=== PATIENT | male | born 1955 | race Caucasian/White ===

== ENCOUNTER → 2016-06-16 | Outpatient (CLI) | payer MEDICARE, MEDICAID ==
[2016-06-16 12:36] LABS: Basophils # (auto) 0 uL; Basophils % (auto) 0.3 % (0.0-2.0); Eosinophils # (auto) 0.2 uL; Eosinophils % (auto) 2.5 % (0.0-7.0); Hematocrit 42.3 % (41.0-53.0); Hemoglobin 14.1 g/dL (13.5-17.5); Lymphocytes # (auto) 1.4 uL; Lymphocytes % (auto) 22.2 % (10.0-50.0); Mean Corpuscular Hemoglobin 30.2 pg (28.0-32.0); Mean Corpuscular Hgb Conc. 33.5 g/dL (32.0-36.0); Mean Corpuscular Volume 90.3 fL (80.0-100.0); Mean Platelet Volume 8.7 fL (7.4-10.4); Monocytes # (auto) 0.6 uL; Monocytes % (auto) 9.9 % (0.0-12.0); Neutrophils # (auto) 4.1 uL; Neutrophils % (auto) 65.1 % (37.0-80.0); Platelet Count (auto) 227 10^3/uL (140-450); Red Cell Distribution Width 15.4 % (11.6-16.0); White Blood Cell 6.2 10^3/uL (4.4-10.8)
[2016-06-16 12:46] LABS: Albumin 3.3 g/dL (3.4-5.0); BUN/Creatinine Ratio 14.4; Bilirubin, Total 0.4 mg/dL (0.2-1.0); Calcium 9.1 mg/dL (8.5-10.1)
[2016-06-16 12:53] LABS: Urine Bilirubin Negative (Negative); Urine Blood Negative /uL (Negative); Urine Color Yellow (Yellow); Urine Glucose Normal (Normal); Urine Ketone Negative (Negative); Urine Nitrite Negative (Negative); Urine RBC <1 /hpf (0 - 3); Urine Urobilinogen Normal (Negative)
[2016-06-16 13:24] LABS: Potassium 5.6 mmol/L (3.5-5.1)
== END | disposition home or self-care (01) ==
LOC: LAB 10:13
DX: E04.9 Nontoxic goiter, unspecified (principal); I73.9 Peripheral vascular disease, unspecified; Z12.5 Encounter for screening for malignant neoplasm of prostate
CPT/HCPCS: 36415; 80053; 80061; 81001; 83036; 84443; 85025

== ENCOUNTER → 2016-07-27 | Outpatient (CLI) | payer MEDICARE, MEDICAID ==
[2016-07-27 20:08] LABS: BUN/Creatinine Ratio 16.5; Calcium 8.7 mg/dL (8.5-10.1); Potassium 4.5 mmol/L (3.5-5.1)
== END | disposition home or self-care (01) ==
LOC: LAB 14:50
DX: E87.5 Hyperkalemia (principal)
CPT/HCPCS: 36415; 80048

== ENCOUNTER 2016-12-01 09:51 | Inpatient (IN) | payer MEDICARE, MEDICAID ==
[~2016-12-01] VITALS: Ht 188 cm; Wt 95.8 kg
[2016-12-01 11:03] LABS: Basophils # (auto) 0 uL; Basophils % (auto) 0.3 % (0.0-2.0); CONDITION Y; Eosinophils # (auto) 0.1 uL; Eosinophils % (auto) 1.6 % (0.0-7.0); Hematocrit 37.3 % (41.0-53.0); Hemoglobin 12.6 g/dL (13.5-17.5); Lymphocytes % (auto) 14.1 % (10.0-50.0); Mean Corpuscular Hemoglobin 30.2 pg (28.0-32.0); Mean Corpuscular Hgb Conc. 33.6 g/dL (32.0-36.0); Mean Corpuscular Volume 89.8 fL (80.0-100.0); Mean Platelet Volume 8.5 fL (7.4-10.4); Monocytes # (auto) 0.7 uL; Monocytes % (auto) 9.3 % (0.0-12.0); Neutrophils # (auto) 5.5 uL; Neutrophils % (auto) 74.7 % (37.0-80.0); Platelet Count (auto) 219 10^3/uL (140-450); Red Cell Distribution Width 15.2 % (11.6-16.0); White Blood Cell 7.4 10^3/uL (4.4-10.8)
[2016-12-01 11:18] LABS: Albumin 2.6 g/dL (3.4-5.0); BUN/Creatinine Ratio 15.5; Calcium 7.9 mg/dL (8.5-10.1); Potassium 4.4 mmol/L (3.5-5.1)
[2016-12-01 11:20] LABS: Bilirubin, Total 0.3 mg/dL (0.2-1.0); Total Protein 7.2 g/dL (6.4-8.2)
[2016-12-01 11:21] LABS: INR 3.76 (0.9-1.15); Partial Thromboplastin Time 59.5 sec (22.64-33.71); Prothrombin Time 41.5 sec (9.37-12.3)
[2016-12-01 14:11] LABS: Urine Bilirubin Negative (Negative); Urine Blood Negative /uL (Negative); Urine Color Yellow (Yellow); Urine Glucose Normal (Normal); Urine Ketone Negative (Negative); Urine Nitrite Negative (Negative); Urine RBC 1 /hpf (0 - 3); Urine Squamous Epithelial Cell FEW /hpf (<5)
[2016-12-01] MEDS ORDERED: VANCOMYCIN PER PHARMACY 0 MG IV SCH (15:15)
[2016-12-01] MEDS ORDERED: ONDANSETRON HCL 4 MG/2 ML VIAL IV ONE (15:15)
[2016-12-01] MEDS ORDERED: LORazepam 0.5 MG TAB PO PRN (15:15)
[2016-12-01] MEDS ORDERED: ACETAMINOPHEN 500 MG TAB PO PRN (15:15)
[2016-12-01] MEDS ORDERED: PROMETHAZINE HCL 25 MG/ML 1ML IV PRN (15:15)
[2016-12-01] MEDS ORDERED: MORPHINE SULFATE 4 MG/ML SYRG IV ONE (15:15)
[2016-12-01] MEDS ORDERED: VANCOMYCIN 1GM/250ML D5W 250 ML IV ONE (15:15)
[2016-12-01] MEDS ORDERED: LACTULOSE 20Gm/30ML SOLN PO PRN (15:15)
[2016-12-01] MEDS ORDERED: PIPERACILLIN-TAZOB 3.375GM 100 ML IV ONE (15:15)
[2016-12-01] MEDS: SODIUM CHLORIDE 0.9% 1,000 ML IV SCH (16:32)
[2016-12-01 17:50] VITALS: BP 111/52
[2016-12-01] MEDS: VANCOMYCIN 1GM/250ML D5W 250 ML IV SCH (18:02)
[2016-12-01] MEDS ORDERED: GABA-494 PO (18:11)
[2016-12-01] MEDS ORDERED: MORP30TA PO (18:11)
[2016-12-01] MEDS ORDERED: WARF2TAB49 PO (18:11)
[2016-12-01 18:14] VITALS: BP 111/54
[2016-12-01] MEDS: PIPERACILLIN-TAZOB 3.375GM 100 ML IV SCH (20:45)
[2016-12-01] MEDS: MORPHINE SULF 30 mg ER tab PO SCH (21:48)
[2016-12-01 22:00] VITALS: BP 91/52
[2016-12-02] MEDS: VANCOMYCIN 1GM/250ML D5W 250 ML IV SCH ×3 (00:04→17:45)
[2016-12-02] MEDS: SODIUM CHLORIDE 0.9% 1,000 ML IV SCH ×3 (01:03→15:45)
[2016-12-02] MEDS: PIPERACILLIN-TAZOB 3.375GM 100 ML IV SCH ×4 (03:00→21:47)
[2016-12-02 05:09] VITALS: BP 94/53
[2016-12-02 06:25] LABS: Basophils # (auto) 0 uL; Basophils % (auto) 0.4 % (0.0-2.0); Eosinophils # (auto) 0.1 uL; Hematocrit 33.6 % (41.0-53.0); Hemoglobin 11.4 g/dL (13.5-17.5); Lymphocytes # (auto) 0.9 uL; Lymphocytes % (auto) 19.3 % (10.0-50.0); Mean Corpuscular Hemoglobin 30.9 pg (28.0-32.0); Mean Corpuscular Hgb Conc. 33.8 g/dL (32.0-36.0); Mean Corpuscular Volume 91.3 fL (80.0-100.0); Mean Platelet Volume 8.1 fL (7.4-10.4); Monocytes # (auto) 0.5 uL; Monocytes % (auto) 9.5 % (0.0-12.0); Neutrophils # (auto) 3.3 uL; Neutrophils % (auto) 67.8 % (37.0-80.0); Nucleated Red Blood Cells % 0.1 %; Platelet Count (auto) 149 10^3/uL (140-450); Red Cell Distribution Width 15.4 % (11.6-16.0); White Blood Cell 4.8 10^3/uL (4.4-10.8)
[2016-12-02 06:40] LABS: BUN/Creatinine Ratio 15.7; Calcium 7.8 mg/dL (8.5-10.1); INR 3.83 (0.9-1.15); Partial Thromboplastin Time 58.4 sec (22.64-33.71); Potassium 4.5 mmol/L (3.5-5.1); Prothrombin Time 42.3 sec (9.37-12.3)
[2016-12-02] MEDS: MORPHINE SULF 30 mg ER tab PO SCH ×2 (09:29→21:48)
[2016-12-02 09:40] VITALS: BP 118/62
[2016-12-02] MEDS ORDERED: ENOXAPARIN SOD 40 MG/0.4 ML SYRINGE SC SCH (10:00)
[2016-12-02 11:35] LABS: Hematocrit 36.1 % (41.0-53.0); Hemoglobin 12.2 g/dL (13.5-17.5)
[2016-12-02] MEDS: PANTOPRAZOLE 40 MG TAB PO SCH (12:11)
[2016-12-02] MEDS: MORPHINE SULFATE 4 MG/ML SYRG IV PRN (12:12)
[2016-12-02 13:00] VITALS: BP 107/60
[2016-12-02] MEDS: MULTIPLE VITAMINS W/ MINERALS TAB PO SCH (15:50)
[2016-12-02 17:12] VITALS: BP 105/53
[2016-12-02 18:28] LABS: Hematocrit 36.7 % (41.0-53.0); Hemoglobin 12.1 g/dL (13.5-17.5)
[2016-12-02] MEDS: ASCORBIC ACID 500 MG TAB PO SCH (21:48)
[2016-12-02 22:00] VITALS: BP 111/74
[2016-12-02] MEDS: PRO-STAT 64 30ML PO SCH (22:00)
[2016-12-03] MEDS: TEMAZEPAM 15 MG CAP PO PRN ×2 (00:27→22:19)
[2016-12-03 01:53] LABS: Hematocrit 35.4 % (41.0-53.0); Hemoglobin 11.7 g/dL (13.5-17.5)
[2016-12-03] MEDS: VANCOMYCIN 1GM/250ML D5W 250 ML IV SCH ×3 (01:57→17:59)
[2016-12-03] MEDS: PIPERACILLIN-TAZOB 3.375GM 100 ML IV SCH ×4 (03:28→23:01)
[2016-12-03 05:00] VITALS: BP 116/62
[2016-12-03 05:43] LABS: Basophils # (auto) 0 uL; Basophils % (auto) 0.1 % (0.0-2.0); CONDITION Y; Eosinophils # (auto) 0.1 uL; Eosinophils % (auto) 2.4 % (0.0-7.0); Hematocrit 35.7 % (41.0-53.0); Hemoglobin 11.9 g/dL (13.5-17.5); Lymphocytes # (auto) 1.1 uL; Lymphocytes % (auto) 20.5 % (10.0-50.0); Mean Corpuscular Hemoglobin 30.5 pg (28.0-32.0); Mean Corpuscular Hgb Conc. 33.4 g/dL (32.0-36.0); Mean Corpuscular Volume 91.4 fL (80.0-100.0); Mean Platelet Volume 8.3 fL (7.4-10.4); Monocytes # (auto) 0.4 uL; Monocytes % (auto) 7.4 % (0.0-12.0); Neutrophils # (auto) 3.7 uL; Neutrophils % (auto) 69.6 % (37.0-80.0); Platelet Count (auto) 203 10^3/uL (140-450); Red Cell Distribution Width 15.2 % (11.6-16.0); White Blood Cell 5.4 10^3/uL (4.4-10.8)
[2016-12-03 06:04] LABS: INR 3.64 (0.9-1.15); Partial Thromboplastin Time 59.4 sec (22.64-33.71); Prothrombin Time 40.2 sec (9.37-12.3)
[2016-12-03] MEDS: SODIUM CHLORIDE 0.9% 1,000 ML IV SCH ×2 (07:03→15:03)
[2016-12-03 09:48] VITALS: BP 132/71
[2016-12-03] MEDS: PANTOPRAZOLE 40 MG TAB PO SCH (10:13)
[2016-12-03] MEDS: MULTIPLE VITAMINS W/ MINERALS TAB PO SCH (10:13)
[2016-12-03] MEDS: ASCORBIC ACID 500 MG TAB PO SCH ×2 (10:13→22:19)
[2016-12-03] MEDS: MORPHINE SULF 30 mg ER tab PO SCH ×2 (10:13→22:18)
[2016-12-03] MEDS: PRO-STAT 64 30ML PO SCH ×2 (10:13→22:00)
[2016-12-03 14:19] VITALS: BP 117/65
[2016-12-03] MEDS: MORPHINE SULFATE 4 MG/ML SYRG IV PRN (14:47)
[2016-12-03 17:37] VITALS: BP 116/63
[2016-12-03 21:30] VITALS: BP 125/53
[2016-12-04] MEDS: VANCOMYCIN 1GM/250ML D5W 250 ML IV SCH ×2 (02:52→10:51)
[2016-12-04] MEDS: PIPERACILLIN-TAZOB 3.375GM 100 ML IV SCH ×4 (02:54→20:38)
[2016-12-04] MEDS: SODIUM CHLORIDE 0.9% 1,000 ML IV SCH ×2 (03:03→13:03)
[2016-12-04 05:00] VITALS: BP 122/73
[2016-12-04 06:22] LABS: BUN/Creatinine Ratio 9.5; Calcium 7.7 mg/dL (8.5-10.1); Potassium 4.4 mmol/L (3.5-5.1)
[2016-12-04 06:31] LABS: Partial Thromboplastin Time 54.2 sec (22.64-33.71); Prothrombin Time 33.1 sec (9.37-12.3)
[2016-12-04] MEDS: MORPHINE SULFATE 4 MG/ML SYRG IV PRN ×2 (08:14→15:23)
[2016-12-04 09:32] VITALS: BP 129/70
[2016-12-04] MEDS: MULTIPLE VITAMINS W/ MINERALS TAB PO SCH (10:10)
[2016-12-04] MEDS: MORPHINE SULF 30 mg ER tab PO SCH ×2 (10:10→22:00)
[2016-12-04] MEDS: PRO-STAT 64 30ML PO SCH ×2 (10:10→22:05)
[2016-12-04] MEDS: PANTOPRAZOLE 40 MG TAB PO SCH (10:10)
[2016-12-04] MEDS: ASCORBIC ACID 500 MG TAB PO SCH ×2 (10:10→22:00)
[2016-12-04 16:04] VITALS: BP 141/87
[2016-12-04 17:00] VITALS: BP 119/78
[2016-12-04 20:00] VITALS: BP 124/72
[2016-12-04 22:00] VITALS: BP 124/72
[2016-12-04] MEDS: HYDROcodone-ACET 5/325MG TAB PO PRN (22:00)
[2016-12-04] MEDS: TEMAZEPAM 15 MG CAP PO PRN (22:01)
[2016-12-05] MEDS: SODIUM CHLORIDE 0.9% 1,000 ML IV SCH ×3 (03:03→19:03)
[2016-12-05] MEDS: PIPERACILLIN-TAZOB 3.375GM 100 ML IV SCH ×2 (03:04→10:14)
[2016-12-05] MEDS: VANCOMYCIN 1GM/250ML D5W 250 ML IV SCH ×2 (04:54→17:58)
[2016-12-05 05:00] VITALS: BP 124/67
[2016-12-05 06:19] LABS: INR 2.28 (0.9-1.15); Partial Thromboplastin Time 45.7 sec (22.64-33.71); Prothrombin Time 25.1 sec (9.37-12.3)
[2016-12-05] MEDS ORDERED: IOHEXOL 350 MG/ML 100ML IJ ONE (07:05)
[2016-12-05] MEDS ORDERED: LIDOCAINE 2%HCL (LOCAL ANESTH.) INJ 20ML MDV ONE (07:06)
[2016-12-05 08:39] VITALS: BP 127/73
[2016-12-05] MEDS: PRO-STAT 64 30ML PO SCH ×2 (10:00→22:27)
[2016-12-05] MEDS: PANTOPRAZOLE 40 MG TAB PO SCH (10:00)
[2016-12-05] MEDS: MORPHINE SULF 30 mg ER tab PO SCH ×2 (10:00→22:26)
[2016-12-05] MEDS: ASCORBIC ACID 500 MG TAB PO SCH ×2 (10:00→22:27)
[2016-12-05] MEDS: MULTIPLE VITAMINS W/ MINERALS TAB PO SCH (10:00)
[2016-12-05] MEDS ORDERED: MORPHINE SULF INJ 2 MG/ML SYRINGE 1ML IV ONE (11:45)
[2016-12-05 12:31] VITALS: BP 129/84
[2016-12-05] MEDS ORDERED: MORPHINE SULFATE 4 MG/ML SYRG IV PRN (14:45)
[2016-12-05 16:42] VITALS: BP 122/74
[2016-12-05] MEDS ORDERED: WARFARIN SODIUM 1 MG TAB PO ONE (17:00)
[2016-12-05 20:00] VITALS: BP 122/71
[2016-12-05] MEDS: HYDROcodone-ACET 5/325MG TAB PO PRN (20:15)
[2016-12-05 21:30] VITALS: BP 122/71
[2016-12-06 05:00] VITALS: BP 118/72
[2016-12-06] MEDS: VANCOMYCIN 1GM/250ML D5W 250 ML IV SCH ×3 (05:34→20:16)
[2016-12-06] MEDS: SODIUM CHLORIDE 0.9% 1,000 ML IV SCH (05:35)
[2016-12-06 07:00] VITALS: BP 128/71
[2016-12-06 07:05] LABS: Potassium 4.3 mmol/L (3.5-5.1)
[2016-12-06 07:10] LABS: Basophils # (auto) 0 uL; Basophils % (auto) 0.4 % (0.0-2.0); Eosinophils # (auto) 0.2 uL; Eosinophils % (auto) 2.4 % (0.0-7.0); Hematocrit 39.1 % (41.0-53.0); Hemoglobin 13.1 g/dL (13.5-17.5); Lymphocytes # (auto) 1.3 uL; Lymphocytes % (auto) 18.5 % (10.0-50.0); Mean Corpuscular Hemoglobin 30.3 pg (28.0-32.0); Mean Corpuscular Hgb Conc. 33.4 g/dL (32.0-36.0); Mean Corpuscular Volume 90.7 fL (80.0-100.0); Mean Platelet Volume 8.1 fL (7.4-10.4); Monocytes # (auto) 0.5 uL; Monocytes % (auto) 6.6 % (0.0-12.0); Neutrophils # (auto) 4.9 uL; Neutrophils % (auto) 72.1 % (37.0-80.0); Nucleated Red Blood Cells % 0.1 %; Platelet Count (auto) 230 10^3/uL (140-450); Red Cell Distribution Width 14.8 % (11.6-16.0); White Blood Cell 6.8 10^3/uL (4.4-10.8)
[2016-12-06 07:11] LABS: BUN/Creatinine Ratio 13.6; Calcium 8.4 mg/dL (8.5-10.1)
[2016-12-06 07:16] LABS: INR 1.69 (0.9-1.15); Partial Thromboplastin Time 39.8 sec (22.64-33.71); Prothrombin Time 18.5 sec (9.37-12.3)
[2016-12-06 08:00] VITALS: BP 128/71
[2016-12-06] MEDS: MORPHINE SULF 30 mg ER tab PO SCH ×2 (09:43→22:16)
[2016-12-06] MEDS: LEVOFLOXACIN 750MG 150 ML IV SCH (09:43)
[2016-12-06] MEDS: MULTIPLE VITAMINS W/ MINERALS TAB PO SCH (09:43)
[2016-12-06] MEDS: PRO-STAT 64 30ML PO SCH ×2 (09:45→22:16)
[2016-12-06] MEDS: ASCORBIC ACID 500 MG TAB PO SCH ×2 (09:45→22:16)
[2016-12-06] MEDS: PANTOPRAZOLE 40 MG TAB PO SCH (09:45)
[2016-12-06 10:29] VITALS: BP 128/71
[2016-12-06] MEDS ORDERED: SODIUM CHLORIDE 0.9% 1,000 ML IV ONE (10:30)
[2016-12-06 14:28] VITALS: BP 130/80
[2016-12-06] MEDS ORDERED: fentaNYL CITRATE 100 MCG/2 ML VL ONE (15:48)
[2016-12-06] MEDS ORDERED: MIDAZOLAM HCL 1MG/1ML-2 ML VIAL ONE (15:48)
[2016-12-06] MEDS ORDERED: ANGIOMAX 250 MG VIAL IV ONE (15:48)
[2016-12-06] MEDS ORDERED: SODIUM CHL 0.9% 0 ML ONE (15:49)
[2016-12-06] MEDS ORDERED: IODIXANOL 320MG/ML 100ML BTL IV ONE (15:50)
[2016-12-06] MEDS ORDERED: MORPHINE SULFATE 4 MG/ML SYRG IV PRN (18:30)
[2016-12-06] MEDS ORDERED: MORPHINE SULF INJ 2 MG/ML SYRINGE 1ML ONE (18:46)
[2016-12-06 22:00] VITALS: BP_SYST 117; BP_SYST 125; BP_DIAS 64; BP_DIAS 94
[2016-12-06] MEDS: TEMAZEPAM 15 MG CAP PO PRN (22:20)
[2016-12-07 05:21] VITALS: BP 108/74
[2016-12-07 09:00] VITALS: BP 119/61
[2016-12-07] MEDS: VANCOMYCIN 1GM/250ML D5W 250 ML IV SCH ×2 (09:27→20:39)
[2016-12-07] MEDS: SODIUM CHLORIDE 0.9% 1,000 ML IV SCH ×2 (09:27→20:41)
[2016-12-07] MEDS: MORPHINE SULF 30 mg ER tab PO SCH ×2 (09:31→20:40)
[2016-12-07] MEDS: PANTOPRAZOLE 40 MG TAB PO SCH (09:31)
[2016-12-07] MEDS: LEVOFLOXACIN 750MG 150 ML IV SCH (09:32)
[2016-12-07] MEDS: ASCORBIC ACID 500 MG TAB PO SCH ×2 (10:00→20:40)
[2016-12-07] MEDS: MULTIPLE VITAMINS W/ MINERALS TAB PO SCH (10:00)
[2016-12-07] MEDS: PRO-STAT 64 30ML PO SCH ×2 (10:00→20:41)
[2016-12-07 13:00] VITALS: BP 132/74
[2016-12-07] MEDS ORDERED: BUPIVACAINE 0.75% INJ 10ML MPV SDV IJ ONE (14:25)
[2016-12-07] MEDS ORDERED: ceFAZolin 1GM VL ONE (14:25)
[2016-12-07] MEDS ORDERED: MIDAZOLAM HCL 1MG/1ML-2 ML VIAL ONE (14:35)
[2016-12-07] MEDS ORDERED: fentaNYL CITRATE 100 MCG/2 ML VL ONE (14:35)
[2016-12-07] MEDS ORDERED: PROPOFOL 10 MG/ML 20 ML IV ONE (14:38)
[2016-12-07] MEDS ORDERED: HYDROmorphone HCL 2 MG/ML VL IV PRN (15:00)
[2016-12-07] MEDS ORDERED: ONDANSETRON HCL 4 MG/2 ML VIAL IV ONE (15:00)
[2016-12-07] MEDS ORDERED: ePHEDrine SULFATE 50 MG/ML AMP ONE (15:06)
[2016-12-07 16:54] VITALS: BP 131/90
[2016-12-07] MEDS: HYDROcodone-ACET 5/325MG TAB PO PRN (17:48)
[2016-12-07] MEDS: TEMAZEPAM 15 MG CAP PO PRN (20:40)
[2016-12-07 22:27] VITALS: BP 109/63
[2016-12-08 05:09] VITALS: BP 104/73
[2016-12-08 06:20] LABS: Basophils # (auto) 0 uL; Basophils % (auto) 0.4 % (0.0-2.0); Eosinophils # (auto) 0.1 uL; Eosinophils % (auto) 1.6 % (0.0-7.0); Hemoglobin 12.7 g/dL (13.5-17.5); Lymphocytes # (auto) 1.3 uL; Lymphocytes % (auto) 17.9 % (10.0-50.0); Mean Corpuscular Hemoglobin 30.6 pg (28.0-32.0); Mean Corpuscular Hgb Conc. 33.4 g/dL (32.0-36.0); Mean Corpuscular Volume 91.4 fL (80.0-100.0); Monocytes # (auto) 0.6 uL; Monocytes % (auto) 8.2 % (0.0-12.0); Neutrophils # (auto) 5.2 uL; Neutrophils % (auto) 71.9 % (37.0-80.0); Platelet Count (auto) 220 10^3/uL (140-450); Red Cell Distribution Width 14.8 % (11.8-14.3); White Blood Cell 7.2 10^3/uL (4.4-10.8)
[2016-12-08 06:33] LABS: BUN/Creatinine Ratio 15.1; Calcium 8.4 mg/dL (8.5-10.1); Potassium 4.4 mmol/L (3.5-5.1)
[2016-12-08] MEDS: VANCOMYCIN 1GM/250ML D5W 250 ML IV SCH (08:29)
[2016-12-08 09:27] VITALS: BP 118/66
[2016-12-08] MEDS: ASCORBIC ACID 500 MG TAB PO SCH (09:47)
[2016-12-08] MEDS: PANTOPRAZOLE 40 MG TAB PO SCH (09:47)
[2016-12-08] MEDS: MORPHINE SULF 30 mg ER tab PO SCH (09:47)
[2016-12-08] MEDS: MULTIPLE VITAMINS W/ MINERALS TAB PO SCH (09:47)
[2016-12-08] MEDS: LEVOFLOXACIN 750MG 150 ML IV SCH (09:47)
[2016-12-08 13:00] VITALS: BP 116/69
[2016-12-08] MEDS ORDERED: WARFARIN SODIUM 5 MG TAB PO ONE (17:00)
== END 2016-12-08 14:45 | disposition home health service (06) | DRG 570 ==
LOC: ER 09:51 → TELE 09:52 → CENTRAL 17:28
PROVIDERS: ADMIT Internal Medicine; ATTEND Internal Medicine
PROC: B41F1ZZ Fluoroscopy of Right Lower Extremity Arteries using Low Osmolar Contrast (ICD-10-PCS; principal; 2016-12-06)
PROC: 0JBQ0ZZ Excision of Right Foot Subcutaneous Tissue and Fascia, Open Approach (ICD-10-PCS; 2016-12-07)
PROC: 0JBL0ZZ Excision of Right Upper Leg Subcutaneous Tissue and Fascia, Open Approach (ICD-10-PCS; 2016-12-07)
PROC: 0JBN0ZZ Excision of Right Lower Leg Subcutaneous Tissue and Fascia, Open Approach (ICD-10-PCS; 2016-12-07)
DX: L03.115 Cellulitis of right lower limb (principal); E43 Unspecified severe protein-calorie malnutrition; Z89.612 Acquired absence of left leg above knee; L97.919 Non-pressure chronic ulcer of unspecified part of right lower leg with unspecified severity; I73.9 Peripheral vascular disease, unspecified; Z79.01 Long term (current) use of anticoagulants; Z86.718 Personal history of other venous thrombosis and embolism; F17.200 Nicotine dependence, unspecified, uncomplicated; B95.61 Methicillin susceptible Staphylococcus aureus infection as the cause of diseases classified elsewhere; Z68.27 Body mass index [BMI] 27.0-27.9, adult
CPT/HCPCS: 36415; 71010; 73590; 73630; 80048; 80053; 80202; 81001; 82270; 85014; 85018; 85025; 85045; 85610; 85652; 85730; 86850; 86900; 86901; 87040; 87070; 87075; 87077; 87186; 87205; 93005; 93926; 93971; 96361; 96365; 96375; 99152; 99153; 99291; C1769; J0690; J1956; J2250; J2405; J2543; J2704; J3490; Q9967

== ENCOUNTER → 2017-02-15 | Outpatient (CLI) | payer MEDICARE, MEDICAID ==
[~2017-02-15] MED LIST: BUP100T PO; GABA-494 PO; LEVO88TA4 PO; MORP30TA PO; WARF2TAB49 PO
[2017-02-15 12:18] LABS: INR 1.45 (0.9-1.15); Prothrombin Time 15.9 sec (9.37-12.3)
== END | disposition home or self-care (01) ==
LOC: LAB 11:44
PROVIDERS: ATTEND Physician Assistant
DX: I82.403 Acute embolism and thrombosis of unspecified deep veins of lower extremity, bilateral (principal); Z79.01 Long term (current) use of anticoagulants
CPT/HCPCS: 36415; 85610

== ENCOUNTER → 2017-04-14 | Outpatient (CLI) | payer MEDICARE, MEDICAID ==
[~2017-04-14] MED LIST changes: -BUP100T PO; +CEFT1INJ33 IV; -GABA-494 PO; +GABA100C9 PO; +HYDR-4683 PO; -MORP30TA PO; +VANC500I IV; +WARF3TAB22 PO
[2017-04-14 10:51] LABS: Urine WBC None Seen /hpf (0 - 3)
[2017-04-14 11:13] LABS: Basophils # (auto) 0 uL; Basophils % (auto) 0.4 % (0.0-2.0); Eosinophils # (auto) 0.1 uL; Eosinophils % (auto) 1.6 % (0.0-7.0); Hematocrit 41.4 % (41.0-53.0); Hemoglobin 13.6 g/dL (13.5-17.5); Lymphocytes # (auto) 1.1 uL; Lymphocytes % (auto) 16.4 % (10.0-50.0); Mean Corpuscular Hemoglobin 30.3 pg (28.0-32.0); Mean Corpuscular Hgb Conc. 32.9 g/dL (32.0-36.0); Mean Corpuscular Volume 92.3 fL (80.0-100.0); Monocytes # (auto) 0.6 uL; Monocytes % (auto) 8.7 % (0.0-12.0); Neutrophils # (auto) 4.7 uL; Neutrophils % (auto) 72.9 % (37.0-80.0); Nucleated Red Blood Cells % 0.1 %; Platelet Count (auto) 282 10^3/uL (140-450); Red Blood Cells 4.49 10^6/uL (4.5-5.90); Red Cell Distribution Width 15.2 % (11.8-14.3); White Blood Cell 6.4 10^3/uL (4.4-10.8)
[2017-04-14 11:58] LABS: BUN/Creatinine Ratio 14.5; Bilirubin, Total 0.3 mg/dL (0.2-1.0); Calcium 8.5 mg/dL (8.5-10.1); Potassium 4.7 mmol/L (3.5-5.1); Total Protein 7.7 g/dL (6.4-8.2)
[2017-04-14 12:07] LABS: Urine Bacteria NONE SEEN /hpf (None Seen); Urine Blood Negative /uL (Negative); Urine Specific Gravity 1.007 (1.001-1.035)
[2017-04-14 12:44] LABS: Prostate Specific Antigen 0.52 ng/mL (0.0-4.0)
[2017-04-14 12:45] LABS: Folate (Folic Acid) > 24.00 ng/mL (5.38-24)
== END | disposition home or self-care (01) ==
LOC: LAB 10:02
PROVIDERS: ATTEND Nurse Practitioner
DX: E78.00 Pure hypercholesterolemia, unspecified (principal); D63.8 Anemia in other chronic diseases classified elsewhere; F32.9 Major depressive disorder, single episode, unspecified; Z79.899 Other long term (current) drug therapy; Z79.01 Long term (current) use of anticoagulants; F17.200 Nicotine dependence, unspecified, uncomplicated; I82.409 Acute embolism and thrombosis of unspecified deep veins of unspecified lower extremity; Z85.46 Personal history of malignant neoplasm of prostate
CPT/HCPCS: 36415; 80053; 80061; 81001; 82306; 82607; 82746; 83036; 84153; 84443; 85025

== ENCOUNTER → 2018-05-14 | Outpatient (CLI) | payer MEDICARE, MEDICAID ==
[2018-05-14 13:10] LABS: Basophils # (auto) 0 uL; Basophils % (auto) 0.4 % (0.0-2.0); Eosinophils # (auto) 0.1 uL; Eosinophils % (auto) 1.1 % (0.0-7.0); Hematocrit 38.2 % (41.0-53.0); Hemoglobin 12.6 g/dL (13.5-17.5); Lymphocytes # (auto) 1.2 uL; Lymphocytes % (auto) 13.9 % (10.0-50.0); Mean Corpuscular Hemoglobin 29.2 pg (28.0-32.0); Mean Corpuscular Volume 88.4 fL (80.0-100.0); Monocytes # (auto) 0.8 uL; Monocytes % (auto) 9.6 % (0.0-12.0); Neutrophils # (auto) 6.3 uL; Platelet Count (auto) 275 10^3/uL (140-450); Red Blood Cells 4.32 10^6/uL (4.5-5.90); Red Cell Distribution Width 17.8 % (11.8-14.3); White Blood Cell 8.5 10^3/uL (4.4-10.8)
[2018-05-14 13:35] LABS: Potassium 4.5 mmol/L (3.5-5.1)
[2018-05-14 13:42] LABS: Albumin 2.9 g/dL (3.4-5.0); BUN/Creatinine Ratio 12.2; Bilirubin, Total 0.4 mg/dL (0.2-1.0); Calcium 8.2 mg/dL (8.5-10.1); Total Protein 7.8 g/dL (6.4-8.2)
== END | disposition home or self-care (01) ==
LOC: LAB 12:19
PROVIDERS: ATTEND Psychiatry & Neurology Neurology
DX: G44.52 New daily persistent headache (NDPH) (principal); I67.6 Nonpyogenic thrombosis of intracranial venous system; D49.6 Neoplasm of unspecified behavior of brain; G62.9 Polyneuropathy, unspecified; F10.21 Alcohol dependence, in remission; G62.1 Alcoholic polyneuropathy
CPT/HCPCS: 36415; 80053; 85025

== ENCOUNTER → 2018-12-13 | Outpatient (CLI) | payer MEDICARE, MEDICAID ==
[~2018-12-13] MED LIST changes: -HYDR-4683 PO; +HYDR-4833 PO
[2018-12-13 14:22] LABS: Urine Bacteria NONE SEEN /hpf (None Seen); Urine Blood Negative /uL (Negative); Urine Hyaline Cast FEW /lpf (0 - 2); Urine Mucus FEW (None Seen); Urine Specific Gravity 1.036 (1.001-1.035); Urine WBC 1 /hpf (0 - 3)
[2018-12-13 14:28] LABS: Basophils # (auto) 0 uL; Basophils % (auto) 0.3 % (0.0-2.0); Eosinophils # (auto) 0.1 uL; Eosinophils % (auto) 1.9 % (0.0-7.0); Hematocrit 32.9 % (41.0-53.0); Hemoglobin 10.9 g/dL (13.5-17.5); Lymphocytes % (auto) 15.2 % (10.0-50.0); Mean Corpuscular Hemoglobin 29.1 pg (28.0-32.0); Mean Corpuscular Volume 88.3 fL (80.0-100.0); Monocytes # (auto) 0.6 uL; Neutrophils # (auto) 4.7 uL; Neutrophils % (auto) 73.6 % (37.0-80.0); Platelet Count (auto) 277 10^3/uL (140-450); Red Blood Cells 3.73 10^6/uL (4.5-5.90); Red Cell Distribution Width 17.6 % (11.8-14.3); White Blood Cell 6.4 10^3/uL (4.4-10.8)
[2018-12-13 14:35] LABS: Albumin 2.4 g/dL (3.4-5.0); Calcium 8.6 mg/dL (8.5-10.1); Potassium 4.2 mmol/L (3.5-5.1)
[2018-12-13 14:50] LABS: BUN/Creatinine Ratio 18.9; Bilirubin, Total 0.2 mg/dL (0.2-1.0); Total Protein 7.3 g/dL (6.4-8.2)
== END | disposition home or self-care (01) ==
LOC: LAB 13:52
PROVIDERS: ATTEND Nurse Practitioner
DX: E78.5 Hyperlipidemia, unspecified (principal)
CPT/HCPCS: 36415; 80053; 80061; 81001; 84443; 85025

== ENCOUNTER → 2019-02-08 | Outpatient (CLI) | payer MEDICARE, MEDICAID ==
[2019-02-08 11:26] LABS: Free T4 (Free Thyroxine) 0.89 ng/dL (0.89-1.76)
[2019-02-08 11:27] LABS: Free T3 2.69 pg/mL (2.3-4.2)
== END | disposition home or self-care (01) ==
LOC: LAB 10:19
PROVIDERS: ATTEND Nurse Practitioner
DX: E03.9 Hypothyroidism, unspecified (principal); F32.9 Major depressive disorder, single episode, unspecified; D64.89 Other specified anemias; I25.10 Atherosclerotic heart disease of native coronary artery without angina pectoris; Z98.890 Other specified postprocedural states; Z87.891 Personal history of nicotine dependence
CPT/HCPCS: 36415; 84439; 84443; 84481

== ENCOUNTER → 2020-08-14 | Outpatient (CLI) | payer MEDICARE, MEDICAID ==
[2020-08-14 10:44] LABS: Basophils # (auto) 0 10 ^3/uL (0-0.2); Basophils % (auto) 0.4 % (0.0-2.0); Eosinophils # (auto) 0.2 10 ^3/uL (0-0.8); Eosinophils % (auto) 2.7 % (0.0-7.0); Hematocrit 42.3 % (41.0-53.0); Hemoglobin 14.5 g/dL (13.5-17.5); Lymphocytes # (auto) 1.1 10 ^3/uL (0.4-5.4); Lymphocytes % (auto) 14.9 % (10.0-50.0); Mean Corpuscular Hemoglobin 32.7 pg (28.0-32.0); Mean Corpuscular Hgb Conc. 34.3 g/dL (32.0-36.0); Mean Corpuscular Volume 95.4 fL (80.0-100.0); Monocytes # (auto) 0.7 10 ^3/uL (0-1.3); Monocytes % (auto) 9.2 % (0.0-12.0); Neutrophils # (auto) 5.2 10 ^3/uL (1.6-8.6); Neutrophils % (auto) 72.8 % (37.0-80.0); Platelet Count (auto) 192 10^3/uL (140-450); Red Blood Cells 4.43 10^6/uL (4.5-5.90); White Blood Cell 7.1 10^3/uL (4.4-10.8)
[2020-08-14 10:48] LABS: Urine Blood Negative /uL (Negative); Urine Specific Gravity 1.019 (1.001-1.035)
[2020-08-14 11:35] LABS: Potassium 4.3 mmol/L (3.5-5.1)
[2020-08-14 11:44] LABS: Albumin 3.2 g/dL (3.4-5.0); BUN/Creatinine Ratio 16.3; Bilirubin, Total 0.3 mg/dL (0.2-1.0); Calcium 8.4 mg/dL (8.5-10.1); Total Protein 7.6 g/dL (6.4-8.2)
== END | disposition home or self-care (01) ==
LOC: LAB 10:18
PROVIDERS: ATTEND Nurse Practitioner
DX: E78.5 Hyperlipidemia, unspecified (principal); I10 Essential (primary) hypertension; E03.9 Hypothyroidism, unspecified; R73.9 Hyperglycemia, unspecified
CPT/HCPCS: 36415; 80053; 80061; 81003; 83036; 84443; 85025

== ENCOUNTER 2020-12-10 13:28 | Inpatient (IN) | payer MEDICARE, MEDICAID ==
[~2020-12-10] VITALS: Ht 188 cm; Wt 100.0 kg
[2020-12-10] MEDS ORDERED: SODIUM CHLORIDE 0.9% 500 ML IVB ONE (14:00)
[2020-12-10] MEDS: MORPHINE SULFATE 4 MG/ML SYR/VIAL IV ONE (14:00)
[2020-12-10] MEDS ORDERED: ONDANSETRON HCL 4 MG/2 ML VIAL IV ONE (14:00)
[2020-12-10 14:28] LABS: Basophils # (auto) 0.1 10 ^3/uL (0-0.2); Basophils % (auto) 0.5 % (0.0-2.0); Eosinophils # (auto) 0.1 10 ^3/uL (0-0.8); Eosinophils % (auto) 0.7 % (0.0-7.0); Hemoglobin 14.1 g/dL (13.5-17.5); Lymphocytes # (auto) 1.1 10 ^3/uL (0.4-5.4); Lymphocytes % (auto) 8.4 % (10.0-50.0); Mean Corpuscular Hemoglobin 32.1 pg (28.0-32.0); Mean Corpuscular Hgb Conc. 33.6 g/dL (32.0-36.0); Mean Corpuscular Volume 95.5 fL (80.0-100.0); Monocytes # (auto) 1.4 10 ^3/uL (0-1.3); Monocytes % (auto) 10.9 % (0.0-12.0); Neutrophils # (auto) 10.4 10 ^3/uL (1.6-8.6); Neutrophils % (auto) 79.5 % (37.0-80.0); Nucleated Red Blood Cells % 0.1 %; Red Cell Distribution Width 14.3 % (11.8-14.3); White Blood Cell 13.1 10^3/uL (4.4-10.8)
[2020-12-10 14:46] LABS: Albumin 2.8 g/dL (3.4-5.0); Potassium 4.7 mmol/L (3.5-5.1)
[2020-12-10 14:50] LABS: BUN/Creatinine Ratio 6.1; Bilirubin, Total 0.4 mg/dL (0.2-1.0); Total Protein 7.2 g/dL (6.4-8.2)
[2020-12-10] MEDS ORDERED: NITROGLYCERIN 0.4 MG SL TAB SL PRN (17:30)
[2020-12-10] MEDS ORDERED: MORPHINE SULFATE INJECTION 2 MG/ML SYRG IV PRN (17:30)
[2020-12-10] MEDS ORDERED: ONDANSETRON HCL 4 MG/2 ML VIAL IV PRN ×2 (18:00→22:00)
[2020-12-10] MEDS ORDERED: hydrALAZINE HCL 20 MG/ML VL IV PRN (18:00)
[2020-12-10] MEDS ORDERED: SODIUM CHLORIDE 0.9% 1,000 ML IV SCH (18:00)
[2020-12-10] MEDS ORDERED: LORazepam 2MG/ML-1ML VIAL IV PRN (18:30)
[2020-12-10] MEDS ORDERED: TAMSULOSIN HYDROCHLORIDE 0.4 MG CAP PO ONE (18:45)
[2020-12-10] MEDS ORDERED: MANNITOL FTV 25% 12.5 GM/50 ML 50 ML IV ONE (18:45)
[2020-12-10 19:52] LABS: INR 4.81 (0.9-1.15)
[2020-12-10] MEDS ORDERED: fentaNYL CITRATE 100 MCG/2 ML VL ONE (20:16)
[2020-12-10] MEDS ORDERED: ONDANSETRON HCL 4 MG/2 ML VIAL ONE (20:16)
[2020-12-10] MEDS ORDERED: LIDOCAINE 2% (LOCAL ANESTH.) PF 5ml SDV ONE (20:16)
[2020-12-10] MEDS ORDERED: PROPOFOL 10 MG/ML 20 ML IV ONE (20:16)
[2020-12-10] MEDS ORDERED: MIDAZOLAM HCL 2MG/2ML 2ml VIAL (1mg/ml) ONE (20:16)
[2020-12-10] MEDS ORDERED: KETAMINE HCL 10 ML ONE (20:16)
[2020-12-10] MEDS ORDERED: IOHEXOL 300 MG/ML 100ML BOTTLE IJ ONE (20:42)
[2020-12-10] MEDS ORDERED: CIPROFLOXACIN 400MG/200ML 200 ML IV ONE (21:06)
[2020-12-10] MEDS ORDERED: HYDROmorphone HCL 2 MG/ML VL IV PRN (22:00)
[2020-12-10 22:30] VITALS: BP 111/72
[2020-12-10] MEDS: LACTULOSE 10g/15ml SOLN PR SCH (23:13)
[2020-12-11 05:00] VITALS: BP 112/59
[2020-12-11] MEDS: LACTULOSE 10g/15ml SOLN PR SCH ×4 (06:00→22:31)
[2020-12-11 06:42] LABS: Basophils # (auto) 0 10 ^3/uL (0-0.2); Basophils % (auto) 0.2 % (0.0-2.0); Eosinophils # (auto) 0.1 10 ^3/uL (0-0.8); Eosinophils % (auto) 1.1 % (0.0-7.0); Hematocrit 39.4 % (41.0-53.0); Hemoglobin 13.3 g/dL (13.5-17.5); Lymphocytes # (auto) 0.8 10 ^3/uL (0.4-5.4); Lymphocytes % (auto) 9.6 % (10.0-50.0); Mean Corpuscular Hemoglobin 32.5 pg (28.0-32.0); Mean Corpuscular Hgb Conc. 33.8 g/dL (32.0-36.0); Mean Corpuscular Volume 96.2 fL (80.0-100.0); Monocytes # (auto) 0.9 10 ^3/uL (0-1.3); Monocytes % (auto) 10.6 % (0.0-12.0); Neutrophils # (auto) 6.8 10 ^3/uL (1.6-8.6); Neutrophils % (auto) 78.5 % (37.0-80.0); Red Cell Distribution Width 14.8 % (11.8-14.3); White Blood Cell 8.7 10^3/uL (4.4-10.8)
[2020-12-11 07:00] LABS: Calcium 8.3 mg/dL (8.5-10.1); Partial Thromboplastin Time 65.6 sec (23.6-33.0); Potassium 5.3 mmol/L (3.5-5.1)
[2020-12-11 07:06] LABS: Albumin 2.6 g/dL (3.4-5.0); Bilirubin, Total 0.5 mg/dL (0.2-1.0); Total Protein 6.8 g/dL (6.4-8.2)
[2020-12-11 07:34] LABS: INR 6.01 (0.9-1.15)
[2020-12-11] MEDS: cefTRIAXone 1GM/50ML D5W 50 ML IV SCH (08:58)
[2020-12-11] MEDS: PANTOPRAZOLE 40 MG/10 ML VIAL INJ IV SCH (08:58)
[2020-12-11] MEDS: MORPHINE SULFATE 4 MG/ML SYR/VIAL IV PRN ×4 (08:59→21:28)
[2020-12-11 09:00] VITALS: BP 98/65
[2020-12-11 13:00] VITALS: BP 87/56
[2020-12-11] MEDS: SODIUM BICARB 50ML SYR 50 ML in SOD CHL 0.45% 1,000 ML IV SCH ×2 (16:06→21:27)
[2020-12-11 17:00] VITALS: BP 103/63
[2020-12-11 22:00] VITALS: BP 103/60
[2020-12-12] MEDS: MORPHINE SULFATE 4 MG/ML SYR/VIAL IV PRN ×5 (02:36→22:37)
[2020-12-12 05:00] VITALS: BP 101/69
[2020-12-12] MEDS: LACTULOSE 10g/15ml SOLN PR SCH (06:00)
[2020-12-12 06:42] LABS: Basophils # (auto) 0 10 ^3/uL (0-0.2); Basophils % (auto) 0.4 % (0.0-2.0); Eosinophils # (auto) 0.1 10 ^3/uL (0-0.8); Eosinophils % (auto) 1.9 % (0.0-7.0); Hematocrit 39.8 % (41.0-53.0); Hemoglobin 13.2 g/dL (13.5-17.5); Lymphocytes # (auto) 0.7 10 ^3/uL (0.4-5.4); Lymphocytes % (auto) 11.3 % (10.0-50.0); Mean Corpuscular Hemoglobin 32.4 pg (28.0-32.0); Mean Corpuscular Hgb Conc. 33.3 g/dL (32.0-36.0); Mean Corpuscular Volume 97.4 fL (80.0-100.0); Monocytes # (auto) 0.8 10 ^3/uL (0-1.3); Monocytes % (auto) 11.5 % (0.0-12.0); Neutrophils % (auto) 74.9 % (37.0-80.0); Red Blood Cells 4.09 10^6/uL (4.5-5.90); Red Cell Distribution Width 14.6 % (11.8-14.3); White Blood Cell 6.6 10^3/uL (4.4-10.8)
[2020-12-12 07:03] LABS: Anion Gap 9 (5-15); Blood Urea Nitrogen 42 mg/dL (7-18); Carbon Dioxide 15 mmol/L (21-32); Chloride 116 mmol/L (98-107); Glucose 89 mg/dL (74-106); Potassium 4.7 mmol/L (3.5-5.1); Sodium 140 mmol/L (136-145)
[2020-12-12 07:06] LABS: BUN/Creatinine Ratio 13.8; Calcium 8.4 mg/dL (8.5-10.1); GFR African American 27 mL/min; GFR Non-African American 22 mL/min
[2020-12-12 09:00] VITALS: BP_SYST 111; BP_SYST 141; BP_DIAS 63; BP_DIAS 75
[2020-12-12] MEDS: cefTRIAXone 1GM/50ML D5W 50 ML IV SCH (09:18)
[2020-12-12] MEDS: MORPHINE SULFATE 4 MG/ML SYR/VIAL IV ONE (09:19)
[2020-12-12] MEDS: PANTOPRAZOLE 40 MG/10 ML VIAL INJ IV SCH (09:19)
[2020-12-12] MEDS: SODIUM BICARB 50ML SYR 50 ML in SOD CHL 0.45% 1,000 ML IV SCH ×2 (09:21→22:36)
[2020-12-12 09:44] LABS: INR 6.36 (0.9-1.15)
[2020-12-12] MEDS ORDERED: PHYTONADIONE (VIT K)10 MG/ML 1ML VIAL SUBCUT ONE (12:00)
[2020-12-12 13:00] VITALS: BP 127/74
[2020-12-12 16:00] VITALS: BP 119/66
[2020-12-12 17:00] VITALS: BP 119/66
[2020-12-12 22:00] VITALS: BP 133/74
[2020-12-13] MEDS: MORPHINE SULFATE 4 MG/ML SYR/VIAL IV PRN ×4 (04:18→22:40)
[2020-12-13 05:00] VITALS: BP 137/83
[2020-12-13] MEDS: SODIUM BICARB 50ML SYR 50 ML in SOD CHL 0.45% 1,000 ML IV SCH ×2 (06:09→16:00)
[2020-12-13 07:00] LABS: INR 2.8 (0.9-1.15); Partial Thromboplastin Time 50.1 sec (23.6-33.0)
[2020-12-13 07:05] LABS: Potassium 4.1 mmol/L (3.5-5.1)
[2020-12-13 07:12] LABS: BUN/Creatinine Ratio 17.3; Calcium 8.5 mg/dL (8.5-10.1)
[2020-12-13 09:00] VITALS: BP 133/83
[2020-12-13] MEDS: PANTOPRAZOLE 40 MG/10 ML VIAL INJ IV SCH (09:06)
[2020-12-13] MEDS: cefTRIAXone 1GM/50ML D5W 50 ML IV SCH (09:06)
[2020-12-13] MEDS ORDERED: PHYTONADIONE (VIT K)10 MG/ML 1ML VIAL SUBCUT SCH (10:00)
[2020-12-13 13:00] VITALS: BP 135/82
[2020-12-13 17:00] VITALS: BP 147/79
[2020-12-13 22:14] VITALS: BP 153/92
[2020-12-14] MEDS: SODIUM BICARB 50ML SYR 50 ML in SOD CHL 0.45% 1,000 ML IV SCH ×2 (03:18→06:48)
[2020-12-14 04:57] VITALS: BP 132/68
[2020-12-14 07:06] LABS: INR 1.41 (0.9-1.15); Partial Thromboplastin Time 35.3 sec (23.6-33.0)
[2020-12-14 07:24] LABS: BUN/Creatinine Ratio 18.7; Calcium 8.5 mg/dL (8.5-10.1); Potassium 3.9 mmol/L (3.5-5.1)
[2020-12-14] MEDS: PANTOPRAZOLE 40 MG/10 ML VIAL INJ IV SCH (09:24)
[2020-12-14] MEDS: cefTRIAXone 1GM/50ML D5W 50 ML IV SCH (09:24)
[2020-12-14 09:25] VITALS: BP 152/81
[2020-12-14] MEDS: MORPHINE SULFATE 4 MG/ML SYR/VIAL IV PRN (09:58)
[2020-12-14 10:09] VITALS: BP 137/81
== END 2020-12-14 13:26 | disposition home or self-care (01) | DRG 660 ==
LOC: ER 13:28 → OVERFLOW 17:23 → CENTRAL 23:18
PROVIDERS: ADMIT Family Medicine; ATTEND Family Medicine
PROC: BT171ZZ Fluoroscopy of Left Ureter using Low Osmolar Contrast (ICD-10-PCS; 2020-12-10)
PROC: 0T778DZ Dilation of Left Ureter with Intraluminal Device, Via Natural or Artificial Opening Endoscopic (ICD-10-PCS; principal; 2020-12-10 21:15)
DX: N17.9 Acute kidney failure, unspecified (principal); E87.2 Acidosis; I82.91 Chronic embolism and thrombosis of unspecified vein; N13.2 Hydronephrosis with renal and ureteral calculous obstruction; E87.5 Hyperkalemia; F17.210 Nicotine dependence, cigarettes, uncomplicated; I73.9 Peripheral vascular disease, unspecified; K59.00 Constipation, unspecified; Z20.822 Contact with and (suspected) exposure to COVID-19; N18.2 Chronic kidney disease, stage 2 (mild); S91.301A Unspecified open wound, right foot, initial encounter; X58.XXXA Exposure to other specified factors, initial encounter; R79.1 Abnormal coagulation profile; Z89.512 Acquired absence of left leg below knee; Z89.612 Acquired absence of left leg above knee; Z86.718 Personal history of other venous thrombosis and embolism; Z90.49 Acquired absence of other specified parts of digestive tract; Z90.5 Acquired absence of kidney; Z95.828 Presence of other vascular implants and grafts; Z79.899 Other long term (current) drug therapy; Z79.01 Long term (current) use of anticoagulants; Y93.89 Activity, other specified; Y92.89 Other specified places as the place of occurrence of the external cause; Y99.8 Other external cause status
CPT/HCPCS: 36415; 71045; 74018; 74176; 80048; 80053; 82140; 82150; 83690; 84443; 85025; 85610; 85730; 86850; 86900; 86901; 87426; 93005; 96360; 96361; C9113; G0378; J0696; J2001; J2250; J2405; J2704; J3430

== ENCOUNTER → 2021-04-15 | Day surgery (SDC) | payer MEDICARE, MEDICAID ==
[2021-04-12 11:13] LABS: Basophils # (auto) 0.1 10 ^3/uL (0-0.2); Basophils % (auto) 0.6 % (0.0-2.0); Eosinophils # (auto) 0.1 10 ^3/uL (0-0.8); Eosinophils % (auto) 1.8 % (0.0-7.0); Hematocrit 41.5 % (41.0-53.0); Hemoglobin 14.2 g/dL (13.5-17.5); Lymphocytes # (auto) 1.1 10 ^3/uL (0.4-5.4); Lymphocytes % (auto) 14.2 % (10.0-50.0); Mean Corpuscular Hemoglobin 32.1 pg (28.0-32.0); Mean Corpuscular Hgb Conc. 34.2 g/dL (32.0-36.0); Mean Corpuscular Volume 93.8 fL (80.0-100.0); Monocytes # (auto) 0.7 10 ^3/uL (0-1.3); Monocytes % (auto) 8.5 % (0.0-12.0); Neutrophils % (auto) 74.9 % (37.0-80.0); Red Blood Cells 4.42 10^6/uL (4.5-5.90); Red Cell Distribution Width 13.2 % (11.8-14.3)
[2021-04-12 12:32] LABS: Albumin 3.6 g/dL (3.4-5.0); BUN/Creatinine Ratio 21.1; Bilirubin, Total 0.4 mg/dL (0.2-1.0); Calcium 8.6 mg/dL (8.5-10.1); Total Protein 7.7 g/dL (6.4-8.2)
[~2021-04-15] VITALS: Ht 188 cm; Wt 104.3 kg
[~2021-04-15] MED LIST changes: +CHOL100029 PO; +DexAMETHasone SOD PHOS 10MG/1ML VIAL INJ ONE; +GLYCOPYRROLATE 0.2 MG/ML 1ML VIAL ONE; +IOHEXOL 300 MG/ML 100ML BOTTLE IJ ONE; +LIDOCAINE 2% (LOCAL ANESTH.) PF 5ml SDV ONE; +MEPERIDINE HCL (50 MG/ML) 1 ML VIAL ONE; +MIDAZOLAM HCL 2MG/2ML 2ml VIAL (1mg/ml) ONE; +MULT-1018 OR; +ONDANSETRON HCL 4 MG/2 ML VIAL IV PRN; +ONDANSETRON HCL 4 MG/2 ML VIAL ONE; +PROPOFOL 10 MG/ML 20 ML IV ONE; -WARF2TAB49 PO; +ceFAZolin 1GM/50ML 100 ML IV ONE; +fentaNYL CITRATE 100 MCG/2 ML VL IV PRN; +fentaNYL CITRATE 100 MCG/2 ML VL ONE
[2021-04-15 10:20] VITALS: BP 106/62
== END | disposition home or self-care (01) ==
LOC: SUR 07:49
PROVIDERS: ATTEND Urology
DX: N13.2 Hydronephrosis with renal and ureteral calculous obstruction (principal); E03.9 Hypothyroidism, unspecified; F17.200 Nicotine dependence, unspecified, uncomplicated; Z20.822 Contact with and (suspected) exposure to COVID-19; Z83.1 Family history of other infectious and parasitic diseases; Z83.6 Family history of other diseases of the respiratory system; Z98.890 Other specified postprocedural states; Z79.899 Other long term (current) drug therapy
CPT/HCPCS: 36415; 52356; 80053; 85025; J0690; J1100; J2001; J2175; J2250; J2405; J2704; J3010; Q9967; U0003; 76000

== ENCOUNTER → 2022-08-29 | Outpatient (CLI) | payer MEDICARE ==
[~2022-08-29] MED LIST changes: -DexAMETHasone SOD PHOS 10MG/1ML VIAL INJ ONE; +GABA-1308 PO; -GABA100C9 PO; -GLYCOPYRROLATE 0.2 MG/ML 1ML VIAL ONE; -IOHEXOL 300 MG/ML 100ML BOTTLE IJ ONE; -LIDOCAINE 2% (LOCAL ANESTH.) PF 5ml SDV ONE; -MEPERIDINE HCL (50 MG/ML) 1 ML VIAL ONE; -MIDAZOLAM HCL 2MG/2ML 2ml VIAL (1mg/ml) ONE; -ONDANSETRON HCL 4 MG/2 ML VIAL IV PRN; -ONDANSETRON HCL 4 MG/2 ML VIAL ONE; -PROPOFOL 10 MG/ML 20 ML IV ONE; +WARF-111 PO; -WARF3TAB22 PO; -ceFAZolin 1GM/50ML 100 ML IV ONE; -fentaNYL CITRATE 100 MCG/2 ML VL IV PRN; -fentaNYL CITRATE 100 MCG/2 ML VL ONE
[2022-08-29 10:06] LABS: Basophils # (auto) 0 10 ^3/uL (0-0.2); Basophils % (auto) 0.4 % (0.0-2.0); Eosinophils # (auto) 0.1 10 ^3/uL (0-0.8); Eosinophils % (auto) 1.5 % (0.0-7.0); Hematocrit 41.9 % (41.0-53.0); Hemoglobin 14.1 g/dL (13.5-17.5); Lymphocytes % (auto) 11.9 % (10.0-50.0); Mean Corpuscular Hemoglobin 31.1 pg (28.0-32.0); Mean Corpuscular Hgb Conc. 33.8 g/dL (32.0-36.0); Mean Corpuscular Volume 92.2 fL (80.0-100.0); Monocytes # (auto) 0.9 10 ^3/uL (0-1.3); Monocytes % (auto) 10.5 % (0.0-12.0); Neutrophils # (auto) 6.3 10 ^3/uL (1.6-8.6); Neutrophils % (auto) 75.7 % (37.0-80.0); Nucleated Red Blood Cells % 0.1 %; Red Blood Cells 4.55 10^6/uL (4.5-5.90); Red Cell Distribution Width 16.1 % (11.8-14.3); White Blood Cell 8.3 10^3/uL (4.4-10.8)
[2022-08-29 10:28] LABS: Urine Bacteria NONE SEEN /hpf (None Seen); Urine Blood Negative /uL (Negative); Urine Specific Gravity 1.013 (1.001-1.035); Urine WBC <1 /hpf (0 - 3)
[2022-08-29 11:11] LABS: Potassium 4.5 mmol/L (3.5-5.1)
[2022-08-29 11:26] LABS: Albumin 3.3 g/dL (3.4-5.0); BUN/Creatinine Ratio 17.8 (10.0-20.0); Bilirubin, Total 0.4 mg/dL (0.2-1.0); Calcium 8.1 mg/dL (8.5-10.1); Total Protein 7.7 g/dL (6.4-8.2)
== END | disposition home or self-care (01) ==
LOC: LAB 09:43
PROVIDERS: ATTEND Nurse Practitioner
DX: I10 Essential (primary) hypertension (principal); E78.5 Hyperlipidemia, unspecified; E03.9 Hypothyroidism, unspecified
CPT/HCPCS: 36415; 80053; 80061; 81001; 84443; 85025

== ENCOUNTER 2023-01-09 13:28 | Inpatient (IN) | payer MEDICARE ==
[~2023-01-09] VITALS: Ht 188 cm; Wt 98.5 kg
[2023-01-09 20:50] LABS: Basophils # (auto) 0 10 ^3/uL (0-0.2); Basophils % (auto) 0.3 % (0.0-2.0); Eosinophils # (auto) 0.2 10 ^3/uL (0-0.8); Eosinophils % (auto) 2.3 % (0.0-7.0); Hematocrit 45.7 % (41.0-53.0); Hemoglobin 15.1 g/dL (13.5-17.5); Lymphocytes # (auto) 1.5 10 ^3/uL (0.4-5.4); Lymphocytes % (auto) 19.8 % (10.0-50.0); Mean Corpuscular Hemoglobin 30.6 pg (28.0-32.0); Mean Corpuscular Hgb Conc. 32.9 g/dL (32.0-36.0); Mean Corpuscular Volume 92.8 fL (80.0-100.0); Monocytes # (auto) 0.7 10 ^3/uL (0-1.3); Monocytes % (auto) 9.3 % (0.0-12.0); Neutrophils # (auto) 5.1 10 ^3/uL (1.6-8.6); Neutrophils % (auto) 68.3 % (37.0-80.0); Nucleated Red Blood Cells % 0.1 %; Red Blood Cells 4.92 10^6/uL (4.5-5.90); Red Cell Distribution Width 14.9 % (11.8-14.3); White Blood Cell 7.5 10^3/uL (4.4-10.8)
[2023-01-09 20:59] LABS: Alanine Aminotransferase 26 U/L (7-40); Albumin 4.3 g/dL (3.2-4.8); Alkaline Phosphatase 101 U/L (46-116); Anion Gap 6 (5-15); Aspartate Aminotransferase 13 U/L (13-40); Bilirubin, Total 0.6 mg/dL (0.2-1.0); Blood Urea Nitrogen 16 mg/dL (9-23); Calcium 9.3 mg/dL (8.5-10.1); Carbon Dioxide 26 mmol/L (20-30); Chloride 107 mmol/L (98-107); Glucose 93 mg/dL (74-106); Potassium 4.5 mmol/L (3.5-5.1); Sodium 139 mmol/L (136-145); Total Protein 7.3 g/dL (5.7-8.2)
[2023-01-09 21:01] LABS: Partial Thromboplastin Time 58.2 SEC (24.5-34.5); Prothrombin Time 29.3 sec (9.3-11.8)
[2023-01-09 21:08] LABS: CRP High Sensitivity 5.29 mg/dL (<1.0)
[2023-01-09] MEDS ORDERED: HYDROcodone-ACET 10/325MG TAB PO ONE (21:15)
[2023-01-09] MEDS ORDERED: PIPERACILLIN-TAZOB 3.375GM 100 ML IV ONE (21:15)
[2023-01-09] MEDS ORDERED: ONDANSETRON ODT 4 MG TAB PO ONE (21:15)
[2023-01-09] MEDS ORDERED: VANCOMYCIN 1GM/250ML 250 ML IV ONE (21:15)
[2023-01-09 21:46] LABS: Magnesium 1.9 mg/dL (1.6-2.6)
[2023-01-09 22:03] LABS: Erythrocyte Sedimentation Rate 36 mm/hr (0-20)
[2023-01-09 23:20] VITALS: PULSE 80; RESP 14; O2SAT 99
[2023-01-10] MEDS ORDERED: ACETAMINOPHEN 325 MG TAB PO PRN (05:45)
[2023-01-10] MEDS ORDERED: VANCOMYCIN PER PHARMACY 0 MG IV SCH (05:45)
[2023-01-10] MEDS ORDERED: NITROGLYCERIN 0.4 MG SL TAB SL PRN (05:45)
[2023-01-10] MEDS ORDERED: MORPHINE SULFATE INJ 2 MG/ml SYRG IV PRN ×2 (05:45)
[2023-01-10] MEDS: PIPERACILLIN-TAZOB 3.375GM 100 ML IV SCH ×4 (06:39→23:56)
[2023-01-10 08:00] LABS: INR 2.73 (0.9-1.15); Prothrombin Time 26.8 sec (9.3-11.8)
[2023-01-10 08:25] VITALS: PULSE 86; RESP 18; O2SAT 95
[2023-01-10] MEDS: VANCOMYCIN 1GM/250ML 250 ML IV SCH ×2 (09:01→16:52)
[2023-01-10] MEDS: HYDROcodone-ACET 5/325MG TAB PO PRN ×2 (09:41→14:49)
[2023-01-10 12:45] VITALS: BP 125/67; PULSE 82; RESP 21; TEMP 97.3; O2SAT 93
[2023-01-10 16:00] VITALS: BP 125/67; PULSE 83; RESP 19; TEMP 98.3; O2SAT 93
[2023-01-10] MEDS ORDERED: WARFARIN SODIUM 2 MG TAB PO ONE (17:00)
[2023-01-10] MEDS: GABAPENTIN 300 MG CAP PO SCH (19:54)
[2023-01-10 20:00] VITALS: PULSE 83; PULSE 87; RESP 18; O2SAT 97
[2023-01-10 23:15] VITALS: BP 117/66; PULSE 80; RESP 18; TEMP 98.3; O2SAT 94
[2023-01-11] VITALS (7 sets, daily range): BP systolic 109–114; BP diastolic 60–68; PULSE 78–91; RESP 16–18; TEMP 97.9–98.5; O2SAT 93–95
[2023-01-11] MEDS: VANCOMYCIN 1GM/250ML 250 ML IV SCH ×3 (01:01→17:22)
[2023-01-11] MEDS ORDERED: CALCIUM CARB 500 MG CHEW TAB PO ONE (06:15)
[2023-01-11] MEDS: PIPERACILLIN-TAZOB 3.375GM 100 ML IV SCH ×3 (06:20→18:22)
[2023-01-11] MEDS: GABAPENTIN 300 MG CAP PO SCH ×3 (06:20→22:01)
[2023-01-11] MEDS: LEVOTHYROXINE SODIUM 88 MCG TAB PO SCH (06:20)
[2023-01-11] MEDS: HYDROcodone-ACET 5/325MG TAB PO PRN ×2 (06:26→22:01)
[2023-01-11 08:20] LABS: Basophils # (auto) 0 10 ^3/uL (0-0.2); Basophils % (auto) 0.4 % (0.0-2.0); Eosinophils # (auto) 0.2 10 ^3/uL (0-0.8); Eosinophils % (auto) 2.3 % (0.0-7.0); Hematocrit 42.6 % (41.0-53.0); Hemoglobin 14.2 g/dL (13.5-17.5); Lymphocytes # (auto) 1.2 10 ^3/uL (0.4-5.4); Lymphocytes % (auto) 16.5 % (10.0-50.0); Mean Corpuscular Hemoglobin 30.7 pg (28.0-32.0); Mean Corpuscular Hgb Conc. 33.3 g/dL (32.0-36.0); Mean Corpuscular Volume 92.3 fL (80.0-100.0); Monocytes # (auto) 0.8 10 ^3/uL (0-1.3); Monocytes % (auto) 10.2 % (0.0-12.0); Neutrophils # (auto) 5.3 10 ^3/uL (1.6-8.6); Neutrophils % (auto) 70.6 % (37.0-80.0); Nucleated Red Blood Cells % 0.1 %; Red Blood Cells 4.62 10^6/uL (4.5-5.90); Red Cell Distribution Width 14.8 % (11.8-14.3); White Blood Cell 7.5 10^3/uL (4.4-10.8)
[2023-01-11 08:31] LABS: Chloride 107 mmol/L (98-107); Potassium 3.9 mmol/L (3.5-5.1); Sodium 136 mmol/L (136-145)
[2023-01-11 08:32] LABS: Anion Gap 5 (5-15); Carbon Dioxide 24 mmol/L (20-30)
[2023-01-11 08:33] LABS: Calcium 8.9 mg/dL (8.5-10.1)
[2023-01-11 08:37] LABS: BUN/Creatinine Ratio 11.6 (10.0-20.0); Blood Urea Nitrogen 11 mg/dL (9-23); Glucose 99 mg/dL (74-106)
[2023-01-11] MEDS: ENOXAPARIN SOD 40 MG/0.4 ML SYRINGE SC SCH (09:25)
[2023-01-12] VITALS (7 sets, daily range): BP systolic 110–133; BP diastolic 64–78; PULSE 77–101; RESP 16–20; TEMP 97.4–98.5; O2SAT 92–95
[2023-01-12] MEDS: VANCOMYCIN 1GM/250ML 250 ML IV SCH ×3 (00:33→17:37)
[2023-01-12] MEDS ORDERED: FAMOTIDINE (10MG/ML) 2ML VL IV ONE (00:45)
[2023-01-12] MEDS: PIPERACILLIN-TAZOB 3.375GM 100 ML IV SCH ×3 (00:53→17:37)
[2023-01-12] MEDS: LEVOTHYROXINE SODIUM 88 MCG TAB PO SCH (06:12)
[2023-01-12] MEDS: HYDROcodone-ACET 5/325MG TAB PO PRN ×2 (06:13→21:42)
[2023-01-12] MEDS: GABAPENTIN 300 MG CAP PO SCH ×3 (06:13→21:23)
[2023-01-12] MEDS: ENOXAPARIN SOD 40 MG/0.4 ML SYRINGE SC SCH (09:12)
[2023-01-12] MEDS ORDERED: CALCIUM CARB 500 MG CHEW TAB PO PRN (19:45)
[2023-01-13] VITALS (7 sets, daily range): BP systolic 110–155; BP diastolic 67–85; PULSE 80–92; RESP 18–22; TEMP 97.7–98.5; O2SAT 93–97
[2023-01-13] MEDS: PIPERACILLIN-TAZOB 3.375GM 100 ML IV SCH ×2 (00:22→10:17)
[2023-01-13] MEDS: VANCOMYCIN 1GM/250ML 250 ML IV SCH ×4 (00:22→17:02)
[2023-01-13] MEDS: LEVOTHYROXINE SODIUM 88 MCG TAB PO SCH (06:14)
[2023-01-13] MEDS: GABAPENTIN 300 MG CAP PO SCH ×3 (06:14→21:29)
[2023-01-13 06:27] LABS: Basophils # (auto) 0 10 ^3/uL (0-0.2); Basophils % (auto) 0.3 % (0.0-2.0); Eosinophils # (auto) 0.3 10 ^3/uL (0-0.8); Eosinophils % (auto) 3.4 % (0.0-7.0); Hematocrit 43.1 % (41.0-53.0); Hemoglobin 14.2 g/dL (13.5-17.5); Lymphocytes # (auto) 1.3 10 ^3/uL (0.4-5.4); Lymphocytes % (auto) 16.6 % (10.0-50.0); Mean Corpuscular Hemoglobin 30.5 pg (28.0-32.0); Mean Corpuscular Volume 92.4 fL (80.0-100.0); Monocytes # (auto) 0.7 10 ^3/uL (0-1.3); Neutrophils # (auto) 5.4 10 ^3/uL (1.6-8.6); Neutrophils % (auto) 70.7 % (37.0-80.0); Nucleated Red Blood Cells % 0.1 %; Red Blood Cells 4.67 10^6/uL (4.5-5.90); White Blood Cell 7.7 10^3/uL (4.4-10.8)
[2023-01-13 06:36] LABS: Chloride 109 mmol/L (98-107); Potassium 4.2 mmol/L (3.5-5.1); Sodium 140 mmol/L (136-145)
[2023-01-13 06:37] LABS: Anion Gap 7 (5-15); Calcium 9.2 mg/dL (8.5-10.1); Carbon Dioxide 24 mmol/L (20-30)
[2023-01-13 06:42] LABS: BUN/Creatinine Ratio 13.7 (10.0-20.0); Blood Urea Nitrogen 13 mg/dL (9-23); Glucose 90 mg/dL (74-106)
[2023-01-13] MEDS: ENOXAPARIN SOD 40 MG/0.4 ML SYRINGE SC SCH (08:50)
[2023-01-13] MEDS: PANTOPRAZOLE 40 MG TAB PO SCH (10:24)
[2023-01-13] MEDS: HYDROcodone-ACET 5/325MG TAB PO PRN ×2 (15:30→21:29)
[2023-01-13 18:08] LABS: Body Fluid Red Blood Cells 7500 CUMM (0-2000); Body Fluid White Blood Cells 13850 CUMM (0-200)
[2023-01-13 18:09] LABS: Body Fluid Polymorphonuclear 95 % (0-25)
[2023-01-14] VITALS (7 sets, daily range): BP systolic 114–124; BP diastolic 65–73; PULSE 71–92; RESP 18–20; TEMP 97.3–98.5; O2SAT 92–97
[2023-01-14] MEDS: GABAPENTIN 300 MG CAP PO SCH ×3 (06:07→21:09)
[2023-01-14] MEDS: LEVOTHYROXINE SODIUM 88 MCG TAB PO SCH (06:07)
[2023-01-14 07:25] LABS: Basophils # (auto) 0 10 ^3/uL (0-0.2); Basophils % (auto) 0.4 % (0.0-2.0); Eosinophils # (auto) 0.3 10 ^3/uL (0-0.8); Eosinophils % (auto) 4.8 % (0.0-7.0); Lymphocytes # (auto) 1.1 10 ^3/uL (0.4-5.4); Lymphocytes % (auto) 15.1 % (10.0-50.0); Mean Corpuscular Hemoglobin 31.1 pg (28.0-32.0); Mean Corpuscular Hgb Conc. 33.4 g/dL (32.0-36.0); Mean Corpuscular Volume 93.2 fL (80.0-100.0); Monocytes # (auto) 0.6 10 ^3/uL (0-1.3); Monocytes % (auto) 8.7 % (0.0-12.0); Neutrophils # (auto) 5.1 10 ^3/uL (1.6-8.6); Nucleated Red Blood Cells % 0.1 %; Red Cell Distribution Width 14.9 % (11.8-14.3); White Blood Cell 7.2 10^3/uL (4.4-10.8)
[2023-01-14 07:42] LABS: Anion Gap 9 (5-15); Carbon Dioxide 23 mmol/L (20-30); Chloride 108 mmol/L (98-107); Potassium 3.8 mmol/L (3.5-5.1); Sodium 140 mmol/L (136-145)
[2023-01-14 07:43] LABS: Calcium 8.5 mg/dL (8.5-10.1)
[2023-01-14 07:47] LABS: Glucose 97 mg/dL (74-106)
[2023-01-14 08:42] LABS: BUN/Creatinine Ratio 12.8 (10.0-20.0); Blood Urea Nitrogen 11 mg/dL (9-23)
[2023-01-14] MEDS: FLORASTOR (S. BOULARDII) 250 MG CAP PO SCH (09:10)
[2023-01-14] MEDS: PANTOPRAZOLE 40 MG TAB PO SCH (09:10)
[2023-01-14] MEDS: ENOXAPARIN SOD 40 MG/0.4 ML SYRINGE SC SCH (09:10)
[2023-01-14] MEDS: HYDROcodone-ACET 5/325MG TAB PO PRN ×4 (09:11→23:31)
[2023-01-14] MEDS: VANCOMYCIN 1GM/250ML 250 ML IV SCH (11:40)
[2023-01-15] MEDS: VANCOMYCIN 1GM/250ML 250 ML IV SCH ×2 (02:15→16:00)
[2023-01-15 05:00] VITALS: BP 133/69; PULSE 78; RESP 20; TEMP 97.5; O2SAT 92
[2023-01-15] MEDS: GABAPENTIN 300 MG CAP PO SCH ×3 (06:10→21:25)
[2023-01-15] MEDS: LEVOTHYROXINE SODIUM 88 MCG TAB PO SCH (06:10)
[2023-01-15 08:00] VITALS: PULSE 76
[2023-01-15 08:25] VITALS: BP 115/74; PULSE 80; RESP 16; TEMP 97.7; O2SAT 93
[2023-01-15] MEDS: HYDROcodone-ACET 5/325MG TAB PO PRN ×2 (09:55→19:08)
[2023-01-15] MEDS: ENOXAPARIN SOD 40 MG/0.4 ML SYRINGE SC SCH (10:00)
[2023-01-15] MEDS: FLORASTOR (S. BOULARDII) 250 MG CAP PO SCH (10:00)
[2023-01-15] MEDS: PANTOPRAZOLE 40 MG TAB PO SCH (10:00)
[2023-01-15 12:30] VITALS: BP 125/73; PULSE 78; RESP 18; TEMP 97.5; O2SAT 93
[2023-01-15 16:25] VITALS: BP 135/84; PULSE 90; RESP 20; TEMP 97.9; O2SAT 94
[2023-01-15 20:00] VITALS: PULSE 85
[2023-01-16 05:39] VITALS: BP 110/70; PULSE 81; RESP 81; TEMP 97.9; O2SAT 92
[2023-01-16] MEDS: HYDROcodone-ACET 5/325MG TAB PO PRN ×2 (06:06→13:34)
[2023-01-16] MEDS: GABAPENTIN 300 MG CAP PO SCH ×2 (06:06→14:30)
[2023-01-16] MEDS: LEVOTHYROXINE SODIUM 88 MCG TAB PO SCH (06:06)
[2023-01-16] MEDS: VANCOMYCIN 1GM/250ML 250 ML IV SCH (06:55)
[2023-01-16 08:00] VITALS: PULSE 78; PULSE 87; RESP 21; O2SAT 0
[2023-01-16 09:00] VITALS: BP 116/64; PULSE 78; RESP 21; TEMP 97.7; O2SAT 96
[2023-01-16] MEDS: PANTOPRAZOLE 40 MG TAB PO SCH (09:22)
[2023-01-16] MEDS: FLORASTOR (S. BOULARDII) 250 MG CAP PO SCH (09:22)
[2023-01-16] MEDS: ENOXAPARIN SOD 40 MG/0.4 ML SYRINGE SC SCH (09:22)
[2023-01-16 12:39] VITALS: BP 128/64; PULSE 82; RESP 19; TEMP 98; O2SAT 93
[2023-01-16] MEDS ORDERED: ceFAZolin 2 GM/D5W100ml 100 ML IV SCH (14:00)
[2023-01-16 15:24] VITALS: BP 128/64; PULSE 82; RESP 19; TEMP 98; O2SAT 93
[2023-01-16 16:58] VITALS: BP 116/77; PULSE 86; RESP 20; TEMP 98; O2SAT 94
[2023-01-18] MEDS ORDERED: DOXY-447 PO (10:02)
== END 2023-01-16 17:10 | disposition home health service (06) | DRG 565 ==
LOC: ER 13:28 → TELE 01-10 05:48 → TELE-WESTW 01-10 10:25
PROVIDERS: ADMIT Nurse Practitioner; ATTEND Nurse Practitioner Acute Care
DX: T87.44 Infection of amputation stump, left lower extremity (principal); D68.9 Coagulation defect, unspecified; L03.116 Cellulitis of left lower limb; M00.9 Pyogenic arthritis, unspecified; L02.416 Cutaneous abscess of left lower limb; L03.115 Cellulitis of right lower limb; M86.8X6 Other osteomyelitis, lower leg; I10 Essential (primary) hypertension; I73.9 Peripheral vascular disease, unspecified; F17.210 Nicotine dependence, cigarettes, uncomplicated; Y83.5 Amputation of limb(s) as the cause of abnormal reaction of the patient, or of later complication, without mention of misadventure at the time of the procedure; Z89.612 Acquired absence of left leg above knee; Z86.718 Personal history of other venous thrombosis and embolism; Z79.01 Long term (current) use of anticoagulants; Z86.711 Personal history of pulmonary embolism
CPT/HCPCS: 36415; 73700; 73721; 75989; 80048; 80053; 80202; 82565; 83605; 83735; 84484; 85025; 85610; 85652; 85730; 86141; 87077; 87186; 87205; 89051; 93926; G0378; J2543; J3490; Q0162

== ENCOUNTER → 2023-05-22 | Outpatient (CLI) | payer MEDICARE ==
[~2023-05-22] MED LIST changes: +DOXY-447 PO
[2023-05-22 10:48] LABS: Basophils # (auto) 0 10 ^3/uL (0-0.2); Basophils % (auto) 0.3 % (0.0-2.0); Eosinophils # (auto) 0.1 10 ^3/uL (0-0.8); Eosinophils % (auto) 1.9 % (0.0-7.0); Hematocrit 44.1 % (41.0-53.0); Hemoglobin 14.7 g/dL (13.5-17.5); Lymphocytes # (auto) 1.1 10 ^3/uL (0.4-5.4); Lymphocytes % (auto) 15.1 % (10.0-50.0); Mean Corpuscular Hemoglobin 31.2 pg (28.0-32.0); Mean Corpuscular Hgb Conc. 33.2 g/dL (32.0-36.0); Mean Corpuscular Volume 93.8 fL (80.0-100.0); Monocytes # (auto) 0.6 10 ^3/uL (0-1.3); Monocytes % (auto) 8.7 % (0.0-12.0); Neutrophils # (auto) 5.4 10 ^3/uL (1.6-8.6); Nucleated Red Blood Cells % 0.1 %; Red Cell Distribution Width 15.3 % (11.8-14.3); White Blood Cell 7.3 10^3/uL (4.4-10.8)
[2023-05-22 11:28] LABS: Alanine Aminotransferase 17 U/L (7-40); Alkaline Phosphatase 90 U/L (46-116); Anion Gap 5 (5-15); Aspartate Aminotransferase 14 U/L (13-40); BUN/Creatinine Ratio 9.3 (10.0-20.0); Blood Urea Nitrogen 9 mg/dL (9-23); Calcium 8.9 mg/dL (8.5-10.1); Carbon Dioxide 26 mmol/L (20-30); Chloride 108 mmol/L (98-107); Cholesterol 144 mg/dL (< 200); Glucose 95 mg/dL (74-106); HDL Cholesterol 34 mg/dL (40-59); LDL Cholesterol 101 mg/dL (< 100); Potassium 4.1 mmol/L (3.5-5.1); Sodium 139 mmol/L (136-145); Triglycerides 81 mg/dL (< 150)
[2023-05-22 11:29] LABS: Bilirubin, Total 0.5 mg/dL (0.2-1.0); Total Protein 7.3 g/dL (5.7-8.2)
== END | disposition home or self-care (01) ==
LOC: LAB 10:20
PROVIDERS: ATTEND Nurse Practitioner
DX: I10 Essential (primary) hypertension (principal); R73.9 Hyperglycemia, unspecified; E78.5 Hyperlipidemia, unspecified; E03.9 Hypothyroidism, unspecified; R35.1 Nocturia
CPT/HCPCS: 36415; 80053; 80061; 83036; 84153; 84443; 85025